=== PATIENT | male | born 1975 | race Two or more races ===

== ENCOUNTER → 2025-01-21 08:31 | Outpatient (REF) | payer BC, SELFPAY | LOC: HWRAD 08:31 | PROVIDERS: ATTENDING PHYSICIAN Physician Assistant Surgical; FAMILY PHYSICIAN Internal Medicine | DX: S42.352G Displaced comminuted fracture of shaft of humerus, left arm, subsequent encounter for fracture with delayed healing (principal) | CPT/HCPCS: 73200 ==